=== PATIENT | male | born 1960 | race Caucasian/White ===

== ENCOUNTER 2016-11-10 08:48 | Day surgery (SDC) | payer BC ==
[2016-11-10] MEDS ORDERED: Cyclopentolate 2% Ophth Soln 5 ML Bottle EYELF ONE (09:00)
[2016-11-10] MEDS ORDERED: Cataract Ophth Solution EYELF ONE (09:00)
[2016-11-10] MEDS ORDERED: Lidocaine 4% 5 ML Amp EYELF ONE ×2 (09:00→10:56)
[2016-11-10] MEDS ORDERED: Sodium Chloride 0.9% 10 ML Syringe FLUSH PRN (09:00)
[2016-11-10] MEDS ORDERED: Moxifloxacin 0.5% Ophth Soln 3 ML Bottle EYELF ONE ×2 (09:00→10:58)
[2016-11-10] MEDS ORDERED: EPINEPHrine 1:1000 1 MG/ML SDV ONE (10:57)
[2016-11-10] MEDS ORDERED: Povidone-Iodine 5% Sterile Ophth Soln 30 ML Bottle EYELF ONE (10:57)
[2016-11-10] MEDS ORDERED: prednisoLONE Acetate 1% Ophth Susp 5 ML Bottle EYELF ONE (10:58)
[2016-11-10] MEDS ORDERED: Balanced Salt Solution Ophth Irrig 500 ML Bottle IOCULAR ONE (10:58)
[2016-11-10] MEDS ORDERED: Lidocaine 1% 30 ML SDV ONE (10:59)
--- NOTE | 2016-11-10 11:10 | PCM.OPNOTE ---
- General Post-Op/Procedure Note Date of Surgery/Procedure: 11/10/16 Operative Procedure(s): Cataract extraction with intraocular lens implant, left eye Findings: As above Pre Op Diagnosis: Cataract left eye Post-Op Diagnosis: Same Anesthesia Technique: MAC Primary Surgeon: Delano Palafox Pathology: None EBL in mLs: 0 Complications: None Condition: Good Free Text/Narrative:: PROCEDURE: After the risks and benefits of the procedure were explained informed consent was obtained from the patient and the patient was taken to the operating room. The patient was given topical Lidocaine 4% drops in the left eye. The patient was then prepped and draped in the sterile [facility] fashion. A wire lid speculum was placed in the left eye. A clear cornea temporal approach was used. A 7515 redding blade was used to make a paracentesis site around 5:00. Preservative-free Lidocaine 1% was injected intracamerally. Viscoelastic was placed in the anterior chamber. A 2.65 mm keratome blade was used to make a clear corneal incision around 3:00. A cystotome needle and Utrata forceps were used to perform continuous curvilinear capsulorhexis. Balanced Salt Solution was used to perform hydrodissection and hydrodelineation. The lens nucleus was removed using the divide and conquer phacoemulsification technique. Cumulative dissipated energy was 1.32. Remaining cortex was removed using irrigation- aspiration. Viscoelastic was placed in the capsular bag. PCBOO 17.5 diopter lens was then placed in the capsular bag. Remaining viscoelastic was removed using irrigation-aspiration. The lens was well centered in the capsular bag. The paracentesis and corneal incision were found to be water-tight. The patient was given topical Prednisolone and Vigamox drops. The speculum was removed and a shield was placed over the left eye. The patient was taken to recovery in stable condition. I certify that I was present for and performed the entire operative procedure. Delano Palafox M.D.
[2016-11-10 11:44] VITALS: BP 110/68
[2016-11-10] MEDS ORDERED: Midazolam 1 MG/ML 2 ML SDV IV ONE (13:06)
== END 2016-11-10 12:00 | disposition home or self-care (01) ==
LOC: DL.SDS 08:48
PROVIDERS: ATTEND Ophthalmology
DX: H26.9 Unspecified cataract (principal); Z79.01 Long term (current) use of anticoagulants; Z95.5 Presence of coronary angioplasty implant and graft
CPT/HCPCS: 66984; A9270; J0171; J7050; C1780; J2250

== ENCOUNTER 2019-10-14 14:48 | Observation (INO) | payer BC, OTHER ==
[2019-10-14] MEDS ORDERED: Aspirin 81 MG Tab.Chew PO ONE (14:57)
[2019-10-14] MEDS ORDERED: Nitroglycerin 0.4 MG Tab.SL SL ONE (15:24)
[2019-10-14 15:33] LABS: ANION GAP 11.9; CHLORIDE,CL 105 mmol/L (101-111); SODIUM,NA 134 mmol/L (135-145)
[2019-10-14] MEDS ORDERED: Famotidine 20 MG/2 ML SDV IVPUSH ONE (16:01)
[2019-10-14] MEDS ORDERED: Ondansetron 4 MG/2 ML SDV IV PRN (19:01)
[2019-10-14] MEDS ORDERED: Acetaminophen 325 MG Tab PO PRN (19:02)
[2019-10-14] MEDS ORDERED: Sodium Chloride 0.9% 10 ML Syringe FLUSH PRN ×2 (19:09)
[2019-10-14] MEDS: Sodium Chloride 0.9% 1,000 ML IV SCH (19:29)
--- NOTE | 2019-10-14 20:03 | PCM.HP ---
H&P History of Present Illness - General Date of Service: 10/14/19 Admit Problem/Dx: Admission Diagnosis/Problem Admission Diagnosis/Problem Chest pain Source of Information: Patient History Limitations: Reports: No Limitations - History of Present Illness Initial Comments - Free Text/Narative: 59 yo M with PMH of CAD, [place] s/p PCI to mid LAD MARILIN, smoking, HLD, HTN, osteoarthritis who presents with midback pain/upper epigastric pain/lower chest pain midback pain/upper epigastric pain/lower chest pain -Location: midback/upper epigastric/lower sternum -Duration: one day -Timing: constant -Quality: pressure-like -Aggrevating Factors: none -Relieving Factors: none -Severity: 5/10 during my evaluation, 7/10 at maximum intensity -Associated symptoms: nausea Pertinent negative: Denies any diaphoresis, palpitations, fever, chills, abd pain, leg swelling Patient says his symptoms are similar to his previous NE in 2016. In the ED, EKG showed NSR, old Q-waves in the inferior leads, no new ST-changes. Troponin was negative. I reviewed the old charts from 2016 and it showed that he had a STEMI in 2016 with MARILIN placed in mid-LAD. 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 Location: Reports: Chest, Abdomen, Back Quality: Reports: Pressure Severity: Moderate Improves with: Reports: None Worsens with: Reports: None Associated Symptoms: Reports: Nausea/Vomiting Back Pain Score (Numeric/FACES): 5 abdomen Pain Score (Numeric/FACES): 5 - Related Data Allergies/Adverse Reactions: Allergies Allergy/AdvReac Type Severity Reaction Status Date / Time No Known Allergies Allergy Verified 10/14/19 17:57 Home Medications: Home Meds Lisinopril [Prinivil] 2.5 mg PO DAILY 09/11/16 [History] atorvaSTATin Calcium [Atorvastatin Calcium] 40 mg PO DAILY 09/11/16 [History] Past Medical History HEENT History: Reports: Cataract, Impaired Vision, Other (See Below) Other HEENT History: WEARS CORRECTIVE LENS Cardiovascular History: Reports: High Cholesterol, Hypertension, NE Other Cardiovascular History: HX OF STEMI ST ELEVATION NE INVOLVING LEFT ANTERIOR DESCENDING CORONARY ARTERY Respiratory History: Reports: None Gastrointestinal History: Reports: Colon Polyp, Hiatal Hernia Other Gastrointestinal History: HX OF HYPERPLASTIC COLON POLYPS Genitourinary History: Reports: None Musculoskeletal History: Reports: Arthritis Neurological History: Reports: None Psychiatric History: Reports: Addiction Endocrine/Metabolic History: Reports: None Hematologic History: Reports: None Immunologic History: Reports: None Oncologic (Cancer) History: Reports: None Dermatologic History: Reports: None - Infectious Disease History Infectious Disease History: Reports: None - Past Surgical History Head Surgeries/Procedures: Reports: None HEENT Surgical History: Reports: Cataract Surgery Cardiovascular Surgical History: Reports: Coronary Artery Stent Respiratory Surgical History: Reports: None Male Surgical History: Reports: None Endocrine Surgical History: Reports: None Neurological Surgical History: Reports: None Musculoskeletal Surgical History: Reports: None Oncologic Surgical History: Reports: None Dermatological Surgical History: Reports: None Social & Family History - Family History Family Medical History: Noncontributory HEENT: Reports: Cataract Cardiac: Reports: High Cholesterol, Hypertension, NE Respiratory: Reports: None GI: Reports: None : Reports: None OBGYN: Reports: None Musculoskeletal: Reports: Arthritis, Gout Neurological: Reports: Alzheimers Disease Psychiatric: Reports: None Endocrine/Metabolic: Reports: None Hematologic: Reports: None Immunologic: Reports: None Dermatologic: Reports: None Oncologic: Reports: None - Tobacco Use Smoking Status *Q: Current Every Day Smoker Years of Tobacco use: 40 Packs/Tins Daily: 0.5 Used Tobacco, but Quit: No Second Hand Smoke Exposure: Yes - Caffeine Use Caffeine Use: Reports: Coffee Other Caffeine Use: 2 cups daily - Recreational Drug Use Recreational Drug Use: No H&P Review of Systems - Review of Systems: Review Of Systems: See Below General: Reports: No Symptoms HEENT: Reports: No Symptoms Pulmonary: Reports: No Symptoms Cardiovascular: Reports: Chest Pain Gastrointestinal: Reports: Nausea Genitourinary: Reports: No Symptoms Musculoskeletal: Reports: No Symptoms Skin: Reports: No Symptoms Psychiatric: Reports: No Symptoms Neurological: Reports: No Symptoms Exam - Exam Exam: See Below - Vital Signs Vital Signs: Last Vital Signs Temp 36.6 C 10/14/19 17:57 Pulse 57 L 10/14/19 17:57 Resp 20 10/14/19 17:57 BP 96/50 L 10/14/19 17:57 Pulse Ox 100 10/14/19 17:57 Weight: 95.799 kg - Exam General: Alert, Oriented HEENT: Conjunctiva Clear, EOMI, Hearing Intact Neck: Supple, Trachea Midline Lungs: Clear to Auscultation, Normal Respiratory Effort Cardiovascular: Regular Rate, Regular Rhythm, Normal S1, Normal S2 GI/Abdominal Exam: Normal Bowel Sounds, Soft, Non-Tender Extremities: Normal Inspection, Normal Range of Motion, Non-Tender, No Pedal Edema - Patient Data Lab Results Last 24 hrs: Laboratory Results - last 24 hr 10/14/19 10/14/19 10/14/19 Range/Units 15:06 15:08 15:08 WBC 11.0 H (5.0-10.0) 10^3/uL RBC 4.89 (4.6-6.2) 10^6/uL Hgb 15.2 (14.0-18.0) g/dL Hct 44.9 (40.0-54.0) % MCV 91.8 (80-100) fL MCH 31.1 (27.0-34.0) pg MCHC 33.9 (33.0-35.0) g/dL Plt Count 294 (150-450) 10^3/uL Neut % (Auto) 75.2 (42.2-75.2) % Lymph % (Auto) 16.9 L (20.5-50.1) % [place] % (Auto) 6.1 (2-8) % Eos % (Auto) 1.3 (1.0-3.0) % Baso % (Auto) 0.5 (0.0-1.0) % PT 9.8 (9.0-12.0) SEC INR 1.0 (0.9-1.2) D-Dimer, Quantitative < 100 (0-400) ng/mL Sodium (135-145) mmol/L Potassium (3.6-5.0) mmol/L Chloride (101-111) mmol/L Carbon Dioxide (21.0-31.0) mmol/L Anion Gap BUN (7-18) mg/dL Creatinine (0.6-1.3) mg/dL Est Cr Clr Drug Dosing mL/min Estimated GFR (MDRD) BUN/Creatinine Ratio Glucose (74-105) mg/dL Calcium (8.4-10.2) mg/dl Magnesium (1.8-2.5) mg/dL Total Bilirubin (0.2-1.0) mg/dL AST (10-42) IU/L ALT (10-60) IU/L Alkaline Phosphatase (42-121) IU/L CK-MB (CK-2) (0.4-4.7) ng/mL Troponin I (0.00-0.02) ng/ml B-Natriuretic Peptide (0-100) pg/ml Total Protein (6.7-8.2) g/dl Albumin (3.2-5.5) g/dl Globulin Albumin/Globulin Ratio Amylase (28-100) U/L Ethyl Alcohol < 5 mg/dL 10/14/19 10/14/19 Range/Units 15:08 15:08 WBC (5.0-10.0) 10^3/uL RBC (4.6-6.2) 10^6/uL Hgb (14.0-18.0) g/dL Hct (40.0-54.0) % MCV (80-100) fL MCH (27.0-34.0) pg MCHC (33.0-35.0) g/dL Plt Count (150-450) 10^3/uL Neut % (Auto) (42.2-75.2) % Lymph % (Auto) (20.5-50.1) % [place] % (Auto) (2-8) % Eos % (Auto) (1.0-3.0) % Baso % (Auto) (0.0-1.0) % PT (9.0-12.0) SEC INR (0.9-1.2) D-Dimer, Quantitative (0-400) ng/mL Sodium 134 L (135-145) mmol/L Potassium 3.9 (3.6-5.0) mmol/L Chloride 105 (101-111) mmol/L Carbon Dioxide 21.0 (21.0-31.0) mmol/L Anion Gap 11.9 BUN 20 H (7-18) mg/dL Creatinine 1.1 (0.6-1.3) mg/dL Est Cr Clr Drug Dosing 75.58 mL/min Estimated GFR (MDRD) > 60 BUN/Creatinine Ratio 18.18 Glucose 156 H (74-105) mg/dL Calcium 9.7 (8.4-10.2) mg/dl Magnesium 2.0 (1.8-2.5) mg/dL Total Bilirubin 0.8 (0.2-1.0) mg/dL AST 23 (10-42) IU/L ALT 29 (10-60) IU/L Alkaline Phosphatase 95 (42-121) IU/L CK-MB (CK-2) 1.80 (0.4-4.7) ng/mL Troponin I < 0.02 (0.00-0.02) ng/ml B-Natriuretic Peptide < 5 (0-100) pg/ml Total Protein 7.6 (6.7-8.2) g/dl Albumin 3.9 (3.2-5.5) g/dl Globulin 3.7 Albumin/Globulin Ratio 1.05 Amylase 46 (28-100) U/L Ethyl Alcohol mg/dL Result Diagrams: 10/14/19 15:08 10/14/19 15:08 Problem List Initiated/Reviewed/Updated: Yes Orders Last 24hrs: Active Orders 24 hr Category Date Time Status Admission Diagnosis [ADT] Stat ADT 10/14/19 17:24 Ordered Patient Status [ADT] Routine ADT 10/14/19 19:09 Active Ambulate [RC] ASDIRECTED Care 10/14/19 19:09 Active Cardiac Monitoring [RC] . DIRECTED Care 10/14/19 14:57 Active Cardiac Monitoring [RC] . DIRECTED Care 10/14/19 17:24 Active EKG Documentation Completion [RC] STAT Care 10/14/19 14:58 Active Height and Weight [RC] DAILY Care 10/14/19 19:09 Active Oxygen Therapy [RC] PRN Care 10/14/19 19:09 Active Peripheral IV Care [RC] . DIRECTED Care 10/14/19 19:09 Active Up With Assistance [RC] ASDIRECTED Care 10/14/19 19:09 Active VTE/DVT Education [RC] PER UNIT ROUTINE Care 10/14/19 19:09 Active Vital Signs [RC] Q4H Care 10/14/19 19:09 Active Regular Diet [DIET] Diet 10/14/19 Dinner Active BASIC METABOLIC PANEL,BMP [CHEM] AM Lab 10/15/19 05:11 Ordered BASIC METABOLIC PANEL,BMP [CHEM] AM Lab 10/16/19 05:11 Ordered BASIC METABOLIC PANEL,BMP [CHEM] AM Lab 10/17/19 05:11 Ordered CBC W/O DIFF,HEMOGRAM [HEME] AM Lab 10/15/19 05:11 Ordered CBC W/O DIFF,HEMOGRAM [HEME] AM Lab 10/16/19 05:11 Ordered CBC W/O DIFF,HEMOGRAM [HEME] AM Lab 10/17/19 05:11 Ordered MAGNESIUM [CHEM] AM Lab 10/15/19 05:11 Ordered MAGNESIUM [CHEM] AM Lab 10/16/19 05:11 Ordered MAGNESIUM [CHEM] AM Lab 10/17/19 05:11 Ordered PHOSPHORUS [CHEM] AM Lab 10/15/19 05:11 Ordered PHOSPHORUS [CHEM] AM Lab 10/16/19 05:11 Ordered PHOSPHORUS [CHEM] AM Lab 10/17/19 05:11 Ordered TROPONIN I [CHEM] Q6H Lab 10/14/19 21:00 Ordered TROPONIN I [CHEM] Q6H Lab 10/15/19 04:00 Ordered Acetaminophen [Tylenol] Med 10/14/19 19:02 Active 650 mg PO Q4H PRN Aspirin Med 10/14/19 21:00 Active 81 mg PO BEDTIME Enoxaparin [Lovenox] Med 10/14/19 21:00 Active 40 mg SUBCUT BEDTIME Ondansetron [Zofran] Med 10/14/19 19:01 Active 4 mg IV Q4H PRN Pantoprazole [ProTONIX IV] Med 10/14/19 19:45 Ordered 40 mg IVPUSH Q12H Sodium Chloride 0.9% [Normal Saline] 1,000 ml Med 10/14/19 19:15 Active IV ASDIRECTED Sodium Chloride 0.9% [Saline Flush] Med 10/14/19 19:09 Active 10 ml FLUSH ASDIRECTED PRN Sodium Chloride 0.9% [Saline Flush] Med 10/14/19 19:09 Active 10 ml FLUSH ASDIRECTED PRN atorvaSTATin [Lipitor] Med 10/14/19 21:00 Active 40 mg PO BEDTIME lisinopriL [Prinivil] Med 10/15/19 09:00 Active 2.5 mg PO DAILY Peripheral IV Insertion Adult [OM.PC] Routine Oth 10/14/19 19:09 Ordered Saline Lock Insert [OM.PC] Routine Oth 10/14/19 19:09 Ordered Resuscitation Status Routine Resus Stat 10/14/19 19:09 Ordered Medication Orders Acetaminophen (Tylenol) 650 mg PO Q4H PRN PRN Reason: Pain/Fever Aspirin (Aspirin) 81 mg PO BEDTIME [place] Atorvastatin Calcium (Lipitor) 40 mg PO BEDTIME [place] Enoxaparin Sodium (Lovenox) 40 mg SUBCUT BEDTIME [place] Sodium Chloride (Normal Saline) 1,000 mls @ 100 mls/hr IV ASDIRECTED [facility] Last Admin: 10/14/19 19:29 Dose: 100 mls/hr Lisinopril (Prinivil) 2.5 mg PO DAILY [place] Ondansetron HCl (Zofran) 4 mg IV Q4H PRN PRN Reason: Nausea/Vomiting Pantoprazole Sodium (Protonix Iv) 40 mg IVPUSH Q12H [place] Sodium Chloride (Saline Flush) 10 ml FLUSH ASDIRECTED PRN PRN Reason: Keep Vein Open Sodium Chloride (Saline Flush) 10 ml FLUSH ASDIRECTED PRN PRN Reason: Keep Vein Open Assessment/Plan Comment:: #Atypical Chest pain #Hx of CAD, STEMI In the ED, EKG showed NSR, old Q-waves in the inferior leads, no new ST- changes. Troponin was negative. I reviewed the old charts from 2016 and it showed that he had a STEMI in 2016 with MARILIN placed in mid-LAD. 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 Symptoms could also be from GERD Troponin x 3 Serial EKGs Telemetry monitoring Start aspirin, statin Start IV protonix monitor vital signs closely #Smoking encouraged patient to quit smoking nicotine patch #DVT ppx SC lovenox #Code status FC
[2019-10-14] MEDS: Pantoprazole 40 MG Vial IVPUSH SCH (20:27)
[2019-10-14] MEDS ORDERED: atorvaSTATin 20 MG Tab PO SCH (21:00)
[2019-10-14] MEDS ORDERED: Aspirin 81 MG Tab.Chew PO SCH (21:00)
[2019-10-14] MEDS ORDERED: Enoxaparin 40 MG/0.4 ML Syringe SUBCUT SCH (21:00)
[2019-10-15] MEDS ORDERED: Melatonin 3 MG Tab PO SCH (01:23)
[2019-10-15 04:26] LABS: CHLORIDE,CL 109 mmol/L (101-111); SODIUM,NA 136 mmol/L (135-145)
[2019-10-15] MEDS: Sodium Chloride 0.9% 1,000 ML IV SCH (06:32)
[2019-10-15 07:45] VITALS: BP 107/54; PULSE 71
[2019-10-15] MEDS: Pantoprazole 40 MG Vial IVPUSH SCH (08:13)
[2019-10-15] MEDS ORDERED: Lisinopril 5 MG Tab PO SCH (09:00)
--- NOTE | 2019-10-15 10:28 | PCM.DCSUM1 ---
Discharge Summary - Hospital Course Free Text/Narrative:: 59 yo M with PMH of CAD, [place] s/p PCI to mid LAD MARILIN, smoking, HLD, HTN, osteoarthritis who presents with midback pain/upper epigastric pain/lower chest pain. midback pain/upper epigastric pain/lower chest pain -Location: midback/upper epigastric/lower sternum -Duration: one day -Timing: constant -Quality: pressure-like -Aggrevating Factors: none -Relieving Factors: none -Severity: 5/10 during my evaluation, 7/10 at maximum intensity -Associated symptoms: nausea Pertinent negative: Denies any diaphoresis, palpitations, fever, chills, abd pain, leg swelling Patient says his symptoms are similar to his previous [place] in 2016. In the ED, EKG showed NSR, old Q-waves in the inferior leads, no new ST-changes. Troponin was negative. I reviewed the old charts from 2016 and it showed that he had a STEMI in 2016 with MARILIN placed in mid-LAD. 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 The patient was monitored overnight in the hospital. No acute events. Pain resolved after IV protonix was started. Patient was discharged on oral protonix Follow up with PCP Follow up with Cardiology clinic Diagnosis: Stroke: No - Discharge Data Discharge Date: 10/15/19 Discharge Disposition: Home, Self-Care 01 Condition: Good - Referral to Home Health Primary Care Physician: PCP Unobtainable - Patient Instructions Diet: Heart Healthy Diet Activity: As Tolerated - Discharge Plan Prescriptions/Med Rec: Aspirin 81 mg PO BEDTIME #30 tab.chew Pantoprazole Sodium [Protonix] 40 mg PO DAILY #30 tablet. Home Medications: Home Meds Lisinopril [Prinivil] 2.5 mg PO DAILY 09/11/16 [History] atorvaSTATin Calcium [Atorvastatin Calcium] 40 mg PO DAILY 09/11/16 [History] Aspirin 81 mg PO BEDTIME #30 tab.chew 10/15/19 [Rx] Pantoprazole Sodium [Protonix] 40 mg PO DAILY #30 tablet. 10/15/19 [Rx] Oxygen Therapy Mode: Room Air Forms: ED Department Discharge - Discharge Summary/Plan Comment DC Time >30 min.: Yes - General Info Date of Service: 10/15/19 Admission Dx/Problem (Free Text: Admission Diagnosis/Problem Admission Diagnosis/Problem Chest pain Subjective Update: Patient seen and examined No CP, no SOB, no nausea or vomiting - Review of Systems General: Reports: No Symptoms HEENT: Reports: No Symptoms Pulmonary: Reports: No Symptoms Cardiovascular: Reports: No Symptoms Gastrointestinal: Reports: No Symptoms Genitourinary: Reports: No Symptoms Musculoskeletal: Reports: No Symptoms Skin: Reports: No Symptoms Neurological: Reports: No Symptoms Psychiatric: Reports: No Symptoms - Patient Data Vitals - Most Recent: Last Vital Signs Temp 36.4 C 10/15/19 07:44 Pulse 71 10/15/19 07:44 Resp 18 10/15/19 07:44 BP 107/54 L 10/15/19 08:12 Pulse Ox 98 10/15/19 07:44 Weight - Most Recent: 95.799 kg I&O - Last 24 hours: Intake & Output 10/14/19 10/15/19 10/15/19 21:59 06:59 14:59 Intake Total 355 Output Total Balance 355 Lab Results - Last 24 hrs: Laboratory Results - last 24 hr 10/14/19 10/14/19 10/14/19 Range/Units 15:06 15:08 15:08 WBC 11.0 H (5.0-10.0) 10^3/uL RBC 4.89 (4.6-6.2) 10^6/uL Hgb 15.2 (14.0-18.0) g/dL Hct 44.9 (40.0-54.0) % MCV 91.8 (80-100) fL MCH 31.1 (27.0-34.0) pg MCHC 33.9 (33.0-35.0) g/dL Plt Count 294 (150-450) 10^3/uL Neut % (Auto) 75.2 (42.2-75.2) % Lymph % (Auto) 16.9 L (20.5-50.1) % [place] % (Auto) 6.1 (2-8) % Eos % (Auto) 1.3 (1.0-3.0) % Baso % (Auto) 0.5 (0.0-1.0) % PT 9.8 (9.0-12.0) SEC INR 1.0 (0.9-1.2) D-Dimer, Quantitative < 100 (0-400) ng/mL Sodium (135-145) mmol/L Potassium (3.6-5.0) mmol/L Chloride (101-111) mmol/L Carbon Dioxide (21.0-31.0) mmol/L Anion Gap BUN (7-18) mg/dL Creatinine (0.6-1.3) mg/dL Est Cr Clr Drug Dosing mL/min Estimated GFR (MDRD) BUN/Creatinine Ratio Glucose (74-105) mg/dL Calcium (8.4-10.2) mg/dl Phosphorus (2.5-4.6) mg/dL Magnesium (1.8-2.5) mg/dL Total Bilirubin (0.2-1.0) mg/dL AST (10-42) IU/L ALT (10-60) IU/L Alkaline Phosphatase (42-121) IU/L CK-MB (CK-2) (0.4-4.7) ng/mL Troponin I (0.00-0.02) ng/ml B-Natriuretic Peptide (0-100) pg/ml Total Protein (6.7-8.2) g/dl Albumin (3.2-5.5) g/dl Globulin Albumin/Globulin Ratio Amylase (28-100) U/L Ethyl Alcohol < 5 mg/dL 10/14/19 10/14/19 10/14/19 Range/Units 15:08 15:08 21:10 WBC (5.0-10.0) 10^3/uL RBC (4.6-6.2) 10^6/uL Hgb (14.0-18.0) g/dL Hct (40.0-54.0) % MCV (80-100) fL MCH (27.0-34.0) pg MCHC (33.0-35.0) g/dL Plt Count (150-450) 10^3/uL Neut % (Auto) (42.2-75.2) % Lymph % (Auto) (20.5-50.1) % [place] % (Auto) (2-8) % Eos % (Auto) (1.0-3.0) % Baso % (Auto) (0.0-1.0) % PT (9.0-12.0) SEC INR (0.9-1.2) D-Dimer, Quantitative (0-400) ng/mL Sodium 134 L (135-145) mmol/L Potassium 3.9 (3.6-5.0) mmol/L Chloride 105 (101-111) mmol/L Carbon Dioxide 21.0 (21.0-31.0) mmol/L Anion Gap 11.9 BUN 20 H (7-18) mg/dL Creatinine 1.1 (0.6-1.3) mg/dL Est Cr Clr Drug Dosing 75.58 mL/min Estimated GFR (MDRD) > 60 BUN/Creatinine Ratio 18.18 Glucose 156 H (74-105) mg/dL Calcium 9.7 (8.4-10.2) mg/dl Phosphorus (2.5-4.6) mg/dL Magnesium 2.0 (1.8-2.5) mg/dL Total Bilirubin 0.8 (0.2-1.0) mg/dL AST 23 (10-42) IU/L ALT 29 (10-60) IU/L Alkaline Phosphatase 95 (42-121) IU/L CK-MB (CK-2) 1.80 (0.4-4.7) ng/mL Troponin I < 0.02 < 0.02 (0.00-0.02) ng/ml B-Natriuretic Peptide < 5 (0-100) pg/ml Total Protein 7.6 (6.7-8.2) g/dl Albumin 3.9 (3.2-5.5) g/dl Globulin 3.7 Albumin/Globulin Ratio 1.05 Amylase 46 (28-100) U/L Ethyl Alcohol mg/dL 10/15/19 10/15/19 10/15/19 Range/Units 04:00 04:00 04:00 WBC 11.3 H (5.0-10.0) 10^3/uL RBC 4.29 L (4.6-6.2) 10^6/uL Hgb 13.4 L D (14.0-18.0) g/dL Hct 40.1 (40.0-54.0) % MCV 93.5 (80-100) fL MCH 31.2 (27.0-34.0) pg MCHC 33.4 (33.0-35.0) g/dL Plt Count 263 (150-450) 10^3/uL Neut % (Auto) (42.2-75.2) % Lymph % (Auto) (20.5-50.1) % [place] % (Auto) (2-8) % Eos % (Auto) (1.0-3.0) % Baso % (Auto) (0.0-1.0) % PT (9.0-12.0) SEC INR (0.9-1.2) D-Dimer, Quantitative (0-400) ng/mL Sodium 136 (135-145) mmol/L Potassium 4.0 (3.6-5.0) mmol/L Chloride 109 (101-111) mmol/L Carbon Dioxide 20.0 L (21.0-31.0) mmol/L Anion Gap 11.0 BUN 15 (7-18) mg/dL Creatinine 1.0 (0.6-1.3) mg/dL Est Cr Clr Drug Dosing 83.14 mL/min Estimated GFR (MDRD) > 60 BUN/Creatinine Ratio Glucose 119 H (74-105) mg/dL Calcium 9.1 (8.4-10.2) mg/dl Phosphorus 2.3 L (2.5-4.6) mg/dL Magnesium 2.0 (1.8-2.5) mg/dL Total Bilirubin (0.2-1.0) mg/dL AST (10-42) IU/L ALT (10-60) IU/L Alkaline Phosphatase (42-121) IU/L CK-MB (CK-2) (0.4-4.7) ng/mL Troponin I < 0.02 (0.00-0.02) ng/ml B-Natriuretic Peptide (0-100) pg/ml Total Protein (6.7-8.2) g/dl Albumin (3.2-5.5) g/dl Globulin Albumin/Globulin Ratio Amylase (28-100) U/L Ethyl Alcohol mg/dL Med Orders - Current: Current Medications Acetaminophen (Tylenol) 650 mg PO Q4H PRN PRN Reason: Pain/Fever Aspirin (Aspirin) 81 mg PO BEDTIME [facility] Last Admin: 10/14/19 21:17 Dose: 81 mg Atorvastatin Calcium (Lipitor) 40 mg PO BEDTIME [facility] Last Admin: 10/14/19 21:18 Dose: 40 mg Enoxaparin Sodium (Lovenox) 40 mg SUBCUT BEDTIME [facility] Last Admin: 10/14/19 21:16 Dose: 40 mg Sodium Chloride (Normal Saline) 1,000 mls @ 100 mls/hr IV ASDIRECTED [facility] Last Admin: 10/15/19 06:32 Dose: 100 mls/hr Lisinopril (Prinivil) 2.5 mg PO DAILY [facility] Last Admin: 10/15/19 08:12 Dose: 2.5 mg Melatonin (Melatonin) 3 mg PO BEDTIME [facility] Last Admin: 10/15/19 01:36 Dose: 3 mg Ondansetron HCl (Zofran) 4 mg IV Q4H PRN PRN Reason: Nausea/Vomiting Pantoprazole Sodium (Protonix Iv) 40 mg IVPUSH Q12H [facility] Last Admin: 10/15/19 08:13 Dose: 40 mg Sodium Chloride (Saline Flush) 10 ml FLUSH ASDIRECTED PRN PRN Reason: Keep Vein Open Discontinued Medications Aspirin (Aspirin) 324 mg PO ONETIME ONE Stop: 10/14/19 14:58 Last Admin: 10/14/19 15:13 Dose: Not Given Famotidine (Pepcid) 20 mg IVPUSH ONETIME ONE Stop: 10/14/19 16:02 Last Admin: 10/14/19 16:23 Dose: 20 mg Nitroglycerin (Nitrostat) 0.4 mg SL ONETIME ONE Stop: 10/14/19 15:25 Last Admin: 10/14/19 15:26 Dose: 0.4 mg Sodium Chloride (Saline Flush) 10 ml FLUSH ASDIRECTED PRN PRN Reason: Keep Vein Open - Exam General: Reports: Alert, Oriented HEENT: Reports: Pupils Equal, Pupils Reactive, EOMI Lungs: Reports: Clear to Auscultation, Normal Respiratory Effort Cardiovascular: Reports: Regular Rate, Regular Rhythm GI/Abdominal Exam: Normal Bowel Sounds, Soft, Non-Tender, No Organomegaly Extremities: Normal Inspection, Non-Tender, No Pedal Edema
--- NOTE | 2019-10-19 20:43 | EDM.PDOC ---
Scribed by Kinjal Rogel 10/19/192042 for Juanita Mccann PA-C ED HPI GENERAL MEDICAL PROBLEM - General Chief Complaint: Chest Pain Stated Complaint: MIDDLE OF YOUR BACK IN PAIN, TOOK 2 NITROS... Time Seen by Provider: 10/14/19 15:10 Source of Information: Reports: Patient, RN, RN Notes Reviewed History Limitations: Reports: No Limitations - History of Present Illness INITIAL COMMENTS - FREE TEXT/NARRATIVE: Patient presents to ER with chest pain mid that radiates through back. He has nausea and belching. These symptoms are the same as his prior DC 3 years ago. He has 1 stent. He took a nitrox2 30 minutes ago. The pain Improved from a 7 down to a 5. He is a smoker. He took ASA 1000mg at home. Onset: Today Duration: Constant Location: Reports: Chest Quality: Reports: Ache Severity: Severe Improves with: Reports: None Worsens with: Reports: None Associated Symptoms: Reports: No Other Symptoms Back Pain Score (Numeric/FACES): 5 - Related Data Allergies Allergy/AdvReac Type Severity Reaction Status Date / Time No Known Allergies Allergy Verified 10/14/19 17:57 Home Meds: Home Meds Lisinopril [Prinivil] 2.5 mg PO DAILY 09/11/16 [History] atorvaSTATin Calcium [Atorvastatin Calcium] 40 mg PO DAILY 09/11/16 [History] Aspirin 81 mg PO BEDTIME #30 tab.chew 10/15/19 [Rx] Pantoprazole Sodium [Protonix] 40 mg PO DAILY #30 tablet.dr 10/15/19 [Rx] Past Medical History HEENT History: Reports: Cataract, Impaired Vision, Other (See Below) Other HEENT History: WEARS CORRECTIVE LENS Cardiovascular History: Reports: High Cholesterol, Hypertension, DC, Other (See Below) Other Cardiovascular History: HX OF STEMI 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 Respiratory History: Reports: None Gastrointestinal History: Reports: Colon Polyp, Hiatal Hernia, Other (See Below) Other Gastrointestinal History: HX OF HYPERPLASTIC COLON POLYPS Genitourinary History: Reports: None Musculoskeletal History: Reports: Arthritis Neurological History: Reports: None Psychiatric History: Reports: None Endocrine/Metabolic History: Reports: None Hematologic History: Reports: None Immunologic History: Reports: None Oncologic (Cancer) History: Reports: None Dermatologic History: Reports: None - Infectious Disease History Infectious Disease History: Reports: Chicken Pox, Measles - Past Surgical History HEENT Surgical History: Reports: None, Cataract Surgery Cardiovascular Surgical History: Reports: Coronary Artery Stent Social & Family History - Family History HEENT: Reports: Cataract Cardiac: Reports: High Cholesterol, Hypertension, DC Respiratory: Reports: None GI: Reports: None : Reports: None OBGYN: Reports: None Musculoskeletal: Reports: Arthritis, Gout Neurological: Reports: Alzheimers Disease Psychiatric: Reports: None Endocrine/Metabolic: Reports: None Hematologic: Reports: None Immunologic: Reports: None Dermatologic: Reports: None Oncologic: Reports: None - Caffeine Use Caffeine Use: Reports: Coffee Other Caffeine Use: 3 CUPS COFFEE DAILY, 1-2 CANS OF SODA ED ROS GENERAL - Review of Systems Review Of Systems: Comprehensive ROS is negative, except as noted in HPI. ED EXAM, GENERAL - Physical Exam Exam: See Below Exam Limited By: No Limitations General Appearance: Other (questionable faint odor ETOH. Stale tobacco. ) Eye Exam: Bilateral Eye: EOMI, Normal Inspection, PERRL Ears: Normal External Exam, Normal Canal, Hearing Grossly Normal, Normal TMs Nose: Normal Inspection, Normal Mucosa, No Blood Throat/Mouth: Normal Inspection, Normal Lips, Normal Teeth, Normal Gums, Normal Oropharynx, Normal Voice, No Airway Compromise Head: Atraumatic, Normocephalic Neck: Normal Inspection, Supple, Non-Tender, Full Range of Motion Respiratory/Chest: No Respiratory Distress, Lungs Clear, Normal Breath Sounds, No Accessory Muscle Use, Chest Non-Tender Cardiovascular: Normal Peripheral Pulses, Regular Rate, Rhythm, No Edema, No Gallop, No JVD, No Murmur, No Rub GI/Abdominal: Normal Bowel Sounds, Soft, Non-Tender, No Organomegaly, No Distention, No Abnormal Bruit, No Mass (Male) Exam: Deferred Rectal (Males) Exam: Deferred Back Exam: Normal Inspection, Full Range of Motion, NT Extremities: Normal Inspection, Normal Range of Motion, Non-Tender, Normal Capillary Refill, No Pedal Edema Neurological: Alert, Oriented, CN II-XII Intact, Normal Cognition, Normal Gait, Normal Reflexes, No Motor/Sensory Deficits Psychiatric: Anxious Skin Exam: Warm, Dry, Intact, Normal Color, No Rash EKG INTERPRETATION EKG Date: 10/14/19 Time: 14:55 Rhythm: Other (sinus rhythm) Rate (Beats/Min): 63 [place]: Normal P-Wave: Present QRS: Normal ST-T: Normal QT: Normal EKG Interpretation Comments: Inferior infarct, age indeterminate. Course - Vital Signs Last Recorded V/S: Last Vital Signs Temp 97.6 F 10/15/19 07:44 Pulse 71 10/15/19 07:44 Resp 18 10/15/19 07:44 BP 107/54 L 10/15/19 08:12 Pulse Ox 98 10/15/19 07:44 - Orders/Labs/Meds Labs: Laboratory Tests 10/14/19 10/14/19 10/14/19 Range/Units 15:06 15:08 15:08 WBC 11.0 H (5.0-10.0) 10^3/uL RBC 4.89 (4.6-6.2) 10^6/uL Hgb 15.2 (14.0-18.0) g/dL Hct 44.9 (40.0-54.0) % MCV 91.8 (80-100) fL MCH 31.1 (27.0-34.0) pg MCHC 33.9 (33.0-35.0) g/dL Plt Count 294 (150-450) 10^3/uL Neut % (Auto) 75.2 (42.2-75.2) % Lymph % (Auto) 16.9 L (20.5-50.1) % [place] % (Auto) 6.1 (2-8) % Eos % (Auto) 1.3 (1.0-3.0) % Baso % (Auto) 0.5 (0.0-1.0) % PT 9.8 (9.0-12.0) SEC INR 1.0 (0.9-1.2) D-Dimer, Quantitative < 100 (0-400) ng/mL Sodium (135-145) mmol/L Potassium (3.6-5.0) mmol/L Chloride (101-111) mmol/L Carbon Dioxide (21.0-31.0) mmol/L Anion Gap BUN (7-18) mg/dL Creatinine (0.6-1.3) mg/dL Est Cr Clr Drug Dosing mL/min Estimated GFR (MDRD) BUN/Creatinine Ratio Glucose (74-105) mg/dL Calcium (8.4-10.2) mg/dl Magnesium (1.8-2.5) mg/dL Total Bilirubin (0.2-1.0) mg/dL AST (10-42) IU/L ALT (10-60) IU/L Alkaline Phosphatase (42-121) IU/L CK-MB (CK-2) (0.4-4.7) ng/mL Troponin I (0.00-0.02) ng/ml B-Natriuretic Peptide (0-100) pg/ml Total Protein (6.7-8.2) g/dl Albumin (3.2-5.5) g/dl Globulin Albumin/Globulin Ratio Amylase (28-100) U/L Ethyl Alcohol < 5 mg/dL 10/14/19 10/14/19 Range/Units 15:08 15:08 WBC (5.0-10.0) 10^3/uL RBC (4.6-6.2) 10^6/uL Hgb (14.0-18.0) g/dL Hct (40.0-54.0) % MCV (80-100) fL MCH (27.0-34.0) pg MCHC (33.0-35.0) g/dL Plt Count (150-450) 10^3/uL Neut % (Auto) (42.2-75.2) % Lymph % (Auto) (20.5-50.1) % [place] % (Auto) (2-8) % Eos % (Auto) (1.0-3.0) % Baso % (Auto) (0.0-1.0) % PT (9.0-12.0) SEC INR (0.9-1.2) D-Dimer, Quantitative (0-400) ng/mL Sodium 134 L (135-145) mmol/L Potassium 3.9 (3.6-5.0) mmol/L Chloride 105 (101-111) mmol/L Carbon Dioxide 21.0 (21.0-31.0) mmol/L Anion Gap 11.9 BUN 20 H (7-18) mg/dL Creatinine 1.1 (0.6-1.3) mg/dL Est Cr Clr Drug Dosing 75.58 mL/min Estimated GFR (MDRD) > 60 BUN/Creatinine Ratio 18.18 Glucose 156 H (74-105) mg/dL Calcium 9.7 (8.4-10.2) mg/dl Magnesium 2.0 (1.8-2.5) mg/dL Total Bilirubin 0.8 (0.2-1.0) mg/dL AST 23 (10-42) IU/L ALT 29 (10-60) IU/L Alkaline Phosphatase 95 (42-121) IU/L CK-MB (CK-2) 1.80 (0.4-4.7) ng/mL Troponin I < 0.02 (0.00-0.02) ng/ml B-Natriuretic Peptide < 5 (0-100) pg/ml Total Protein 7.6 (6.7-8.2) g/dl Albumin 3.9 (3.2-5.5) g/dl Globulin 3.7 Albumin/Globulin Ratio 1.05 Amylase 46 (28-100) U/L Ethyl Alcohol mg/dL Meds: Medications Discontinued Medications Generic Name Dose Route Start Last Admin Trade Name Freq PRN Reason Stop Dose Admin Acetaminophen 650 mg 10/14/19 19:02 Tylenol PO Q4H PRN Pain/Fever Aspirin 324 mg 10/14/19 14:57 10/14/19 15:13 Aspirin PO 10/14/19 14:58 Not Given ONETIME ONE Aspirin 81 mg 10/14/19 21:00 10/14/19 21:17 Aspirin PO 81 mg BEDTIME [place] Administration Atorvastatin Calcium 40 mg 10/14/19 21:00 10/14/19 21:18 Lipitor PO 40 mg BEDTIME [place] Administration Enoxaparin Sodium 40 mg 10/14/19 21:00 10/14/19 21:16 Lovenox SUBCUT 40 mg BEDTIME [place] Administration Famotidine 20 mg 10/14/19 16:01 10/14/19 16:23 Pepcid IVPUSH 10/14/19 16:02 20 mg ONETIME ONE Administration Sodium Chloride 1,000 mls @ 100 mls/hr 10/14/19 19:15 10/15/19 06:32 Normal Saline IV 100 mls/hr ASDIRECTED [place] Administration Lisinopril 2.5 mg 10/15/19 09:00 10/15/19 08:12 Prinivil PO 2.5 mg DAILY [place] Administration Melatonin 3 mg 10/15/19 01:23 10/15/19 01:36 Melatonin PO 3 mg BEDTIME [place] Administration Nitroglycerin 0.4 mg 10/14/19 15:24 10/14/19 15:26 Nitrostat SL 10/14/19 15:25 0.4 mg ONETIME ONE Administration Ondansetron HCl 4 mg 10/14/19 19:01 Zofran IV Q4H PRN Nausea/Vomiting Pantoprazole Sodium 40 mg 10/14/19 19:45 10/15/19 08:13 Protonix Iv IVPUSH 40 mg Q12H [place] Administration Sodium Chloride 10 ml 10/14/19 19:09 Saline Flush FLUSH ASDIRECTED PRN Keep Vein Open Sodium Chloride 10 ml 10/14/19 19:09 Saline Flush FLUSH ASDIRECTED PRN Keep Vein Open Departure - Departure Time of Disposition: 16:55 Disposition: Refer to Observation Condition: Good Clinical Impression: Chest pain Qualifiers: Chest pain type: unspecified Qualified Code(s): R07.9 - Chest pain, unspecified Sepsis Event Note - Evaluation Sepsis Screening Result: No Definite Risk - Focused Exam Date Exam was Performed: 10/19/19 Time Exam was Performed: 20:42 I have read and agree with the documentation that has been completed regarding this visit. By signing this record, I attest that the documentation was completed in my physical presence and is an accurate record of the encounter.
== END 2019-10-15 11:52 | disposition home or self-care (01) ==
LOC: DL.ED 14:48 → DL.MS 17:24
PROVIDERS: ADMIT Hospitalist; ATTEND Hospitalist
DX: R07.89 Other chest pain (principal); I25.10 Atherosclerotic heart disease of native coronary artery without angina pectoris; I25.2 Old myocardial infarction; E78.5 Hyperlipidemia, unspecified; I10 Essential (primary) hypertension; M19.90 Unspecified osteoarthritis, unspecified site; E78.00 Pure hypercholesterolemia, unspecified; F17.210 Nicotine dependence, cigarettes, uncomplicated; Z98.61 Coronary angioplasty status; Z79.899 Other long term (current) drug therapy
CPT/HCPCS: 36415; 71045; 80048; 80053; 80307; 82150; 82553; 83735; 83880; 84100; 84484; 85025; 85027; 85379; 85610; 93005; A9270; C9113; J1650; J3490; J7030; 93010; 96361; 96372; 96374; 96375; 96376; 99217; 99219; 99284; 99285-25; G0378

== ENCOUNTER 2022-09-08 17:04 | Emergency (ER) | payer MEDICAID ==
[2022-09-08] MEDS ORDERED: Acetaminophen 325 MG Tab PO ONE (17:23)
[2022-09-08] MEDS ORDERED: Ibuprofen 800 MG Tab PO ONE (17:23)
[2022-09-08 17:59] LABS: CORONAVIRUS COVID-19 NAA NEGATIVE (NEGATIVE); RESPIRATORY SYNCYTIAL VIR NAA NEGATIVE (NEGATIVE)
[2022-09-08 18:30] VITALS: BP 146/69; PULSE 104
== END 2022-09-08 18:22 | disposition home or self-care (01) ==
LOC: DL.ED 17:04
DX: J10.1 Influenza due to other identified influenza virus with other respiratory manifestations (principal); I10 Essential (primary) hypertension; I25.2 Old myocardial infarction; M19.90 Unspecified osteoarthritis, unspecified site; Z79.82 Long term (current) use of aspirin; Z79.899 Other long term (current) drug therapy; Z20.822 Contact with and (suspected) exposure to COVID-19
CPT/HCPCS: 0241U; 99283; A9270; 99282